=== PATIENT | male | born 1965 | race Caucasian/White ===

== ENCOUNTER 2019-06-01 08:48 | Outpatient (CLI) | payer OTHER ==
--- NOTE | 2019-06-01 10:46 | RAD ---
PA AND LATERAL CHEST: HISTORY: Wellness exam. FINDINGS: Heart size is within normal limits. The lungs are clear of any infiltrates. There is a calcified gr anuloma in the aorticopulmonary window region. There are minimal arthritic changes of the spine. IMPRESSION: No active intrathoracic disease. POS: C
== END 2019-06-01 08:49 | disposition home or self-care (01) ==
LOC: MADRAD 08:48
PROVIDERS: ATTEND Nurse Practitioner Family
DX: Z00.00 Encounter for general adult medical examination without abnormal findings (principal)
CPT/HCPCS: 71046

== ENCOUNTER 2024-12-07 13:07 | Emergency (ER) | payer OTHER ==
[2024-12-07] MEDS ORDERED: Oseltamivir 75 MG CAP ONE (13:46)
[2024-12-07] MEDS ORDERED: Albuterol 200 PUFF (6.7GM INHALER) ONE (13:46)
== END 2024-12-07 14:30 | disposition home or self-care (01) ==
LOC: MADERS 13:07
DX: R05.9 Cough, unspecified (principal); R50.9 Fever, unspecified; M79.10 Myalgia, unspecified site; Z77.22 Contact with and (suspected) exposure to environmental tobacco smoke (acute) (chronic)
CPT/HCPCS: 71046